=== PATIENT | female | born 1935 | race Two or more races ===

== ENCOUNTER 2019-01-27 15:57 | Outpatient (CLI) | payer OTHER ==
[2019-01-27] MEDS ORDERED: VASOTEC20 M1 PO (16:11)
[2019-01-27] MEDS ORDERED: LIPITOR20 MG PO (16:11)
[2019-01-27] MEDS ORDERED: JANUVIA100 MG PO (16:11)
[2019-01-27] MEDS ORDERED: ASA81 MG PO (16:11)
[2019-01-27] MEDS ORDERED: GLIMEPIRIDE4 MG PO (16:11)
== END 2019-01-27 16:01 | disposition home or self-care (01) ==
LOC: LAB 15:57
DX: E87.5 Hyperkalemia (principal)

== ENCOUNTER 2019-02-02 06:53 | Day surgery (SDC) | payer OTHER ==
[~2019-02-02 06:53] MED LIST: ASA81 MG PO; GLIMEPIRIDE4 MG PO; JANUVIA100 MG PO; LIPITOR20 MG PO; VASOTEC20 M1 PO
[2019-02-02] MEDS ORDERED: ULTRACET PO (13:06)
[2019-02-02] MEDS ORDERED: KEFLEX250 MG PO (13:06)
== END 2019-02-02 15:30 | disposition home or self-care (01) ==
LOC: CIR.AMB 06:53
DX: N32.81 Overactive bladder (principal); N39.41 Urge incontinence
CPT/HCPCS: 64581; 64590; C1767; C1778

== ENCOUNTER 2022-02-19 08:45 | Day surgery (SDC) | payer OTHER ==
[~2022-02-19 08:45] MED LIST changes: +KEFLEX250 MG PO; +ULTRACET PO
[2022-02-19] MEDS ORDERED: CEPHALEXIN250 MG PO (10:44)
[2022-02-19] MEDS ORDERED: ULTRACET PO (10:44)
== END 2022-02-19 14:10 | disposition home or self-care (01) ==
LOC: CIR.AMB 08:45
PROVIDERS: ATTEND Obstetrics & Gynecology Gynecology
DX: N32.81 Overactive bladder (principal); N39.41 Urge incontinence; I10 Essential (primary) hypertension